=== PATIENT | female | born 1955 | race African-American/Black ===

== ENCOUNTER 2020-04-21 13:20 | Inpatient (IN) ==
[2020-04-21 14:54] LABS: Basophils # 0.1 10*3/uL (0.0-0.2); Basophils % 0.3 % (0.0-0.8); Eosinophils # 0.1 10*3/uL (0.0-0.87); Eosinophils % 0.6 % (0.00-10.9); Hematocrit 24.2 VOL% (35.7-47.0); Hemoglobin 7.5 GM/DL (12.0-16.0); Immature Granulocytes % 0.7 %; Immature Granulocytes Absolute 0.13 #; Lymphocytes # 0.9 10*3/uL (1.4-4.0); Lymphocytes % 4.6 % (21.3-54.2); Mean Corpuscular Volume 75.2 FL (87-102); Mean Platelet Volume 9.2 FL (9.6-12.0); Monocytes % 7.6 % (1.7-12.7); Neutrophils % 86.2 % (38.7-73.9); Platelet Count 874 T/CUMM (130-400); Red Blood Count 3.22 MC/CUMM (3.8-5.5); Red Cell Distribution Width 15.8 % (9.3-17.3)
[2020-04-21 15:24] LABS: Albumin 1.9 G/DL (3.4-5.0); Bilirubin,Total 0.6 MG/DL (0.2-1.0); Calcium 8.4 MG/DL (8.5-10.1); Osmolality,Calculated 250.8 MOS/KG (273-304); Total Protein 7.1 G/DL (6.4-8.3)
[2020-04-21] MEDS ORDERED: DEXTROSE 50% 25 GM/50 ML VIAL IV PRN (15:53)
[2020-04-21] MEDS ORDERED: GLUCAGON 1 MG VIAL IM PRN (15:53)
[2020-04-21] MEDS ORDERED: ONDANSETRON 4 MG/2 ML VIAL IV PRN (15:53)
[2020-04-21] MEDS ORDERED: DOCUSATE SODIUM 100 MG CAPSULE PO PRN (15:58)
[2020-04-21] MEDS ORDERED: guaiFENesin/DM ER 600-30 MG TABLET PO PRN (15:58)
[2020-04-21 15:59] LABS: Eosinophils 1 % (0-10); Hypochromasia 2+; Lymphocytes 6 % (20-55); Microcytosis 1+; Segmented Neutrophils 89 % (50-85); Total Cells Counted 100
[2020-04-21 16:00] LABS: Hypersegmented Neutrophil 1+; Platelet Estimate Increased
[2020-04-21] MEDS ORDERED: ALBUTEROL/IPRATROPIUM 3 ML NEB RESP TX SCH (16:00)
[2020-04-21] MEDS ORDERED: FLUTICASONE 50 MCG NASAL SPRAY 16 GM BOTTLE BOTH NARES PRN (16:06)
[2020-04-21] MEDS: ENOXAPARIN 40 MG/0.4 ML SYRINGE SUBCUT SCH (17:00)
[2020-04-21] MEDS: PIPERACILLIN/TAZOBACTAM 3,375 MG in SODIUM CHLORIDE 0.9% 100 ML IV SCH (17:01)
[2020-04-21] MEDS ORDERED: INFLUENZA VIRUS VACCINE 0.5 ML SYRINGE IM ONE (18:08)
[2020-04-21] MEDS: ALBUTEROL/IPRATROPIUM 3 ML NEB RESP TX SCH (18:43)
[2020-04-22] MEDS: ALBUTEROL/IPRATROPIUM 3 ML NEB RESP TX SCH ×7 (01:31→23:05)
[2020-04-22] MEDS: PIPERACILLIN/TAZOBACTAM 3,375 MG in SODIUM CHLORIDE 0.9% 100 ML IV SCH ×3 (02:00→15:59)
[2020-04-22 06:27] LABS: % Iron Saturation 18.1 % (18-50)
[2020-04-22 06:37] LABS: Folate 9.5 NG/ML (5.4-24.0); Vitamin B12 > 2000 PG/ML (211-911)
[2020-04-22 06:42] LABS: Calcium 8.8 MG/DL (8.5-10.1); Osmolality,Calculated 248.8 MOS/KG (273-304)
[2020-04-22 06:59] LABS: Basophils # 0.1 10*3/uL (0.0-0.2); Basophils % 0.4 % (0.0-0.8); Eosinophils # 0.2 10*3/uL (0.0-0.87); Eosinophils % 1.3 % (0.00-10.9); Hematocrit 22.2 VOL% (35.7-47.0); Immature Granulocytes % 0.8 %; Immature Granulocytes Absolute 0.13 #; Lymphocytes # 0.7 10*3/uL (1.4-4.0); Lymphocytes % 3.8 % (21.3-54.2); Mean Corpuscular HGB Conc 31.5 GM/DL (32-36); Mean Corpuscular Volume 73.8 FL (87-102); Mean Platelet Volume 9.4 FL (9.6-12.0); Monocytes % 7.3 % (1.7-12.7); Neutrophils % 86.4 % (38.7-73.9); Platelet Count 802 T/CUMM (130-400); Red Blood Count 3.01 MC/CUMM (3.8-5.5); White Blood Count 17.2 T/CUMM (4-12)
[2020-04-22 07:13] LABS: Eosinophils 2 % (0-10); Hypochromasia 2+; Lymphocytes 9 % (20-55); Microcytosis 1+; Ovalocytes Slight; Platelet Estimate Increased; Segmented Neutrophils 85 % (50-85); Total Cells Counted 100
[2020-04-22] MEDS ORDERED: SODIUM CHLORIDE 0.9% 1,000 ML IV PRN (08:00)
[2020-04-22] MEDS ORDERED: IBUPROFEN 600 MG TABLET PO PRN (08:01)
[2020-04-22] MEDS ORDERED: ALUMINUM/MAGNES/SIMETH MAX STR 30 ML UDCUP PO PRN (08:04)
[2020-04-22] MEDS ORDERED: MYLANTA/LIDO VISC 2:1 300 ML BOTTLE SWISH/SWAL PRN (08:04)
[2020-04-22] MEDS ORDERED: ALPRAZolam 0.25 MG TABLET PO PRN (08:04)
[2020-04-22] MEDS ORDERED: PROMETHAZINE INJ 25 MG in SODIUM CHLORIDE 0.9% 50 ML IV PRN (08:04)
[2020-04-22] MEDS ORDERED: MAGNESIUM HYDROXIDE SUSP 30 ML UDCUP PO PRN (08:04)
[2020-04-22] MEDS ORDERED: guaiFENesin 200 MG/10 ML UDCUP PO PRN (08:04)
[2020-04-22] MEDS ORDERED: ONDANSETRON 4 MG/2 ML VIAL IV PRN (08:04)
[2020-04-22] MEDS ORDERED: LOPERAMIDE 2 MG CAPSULE PO PRN ×2 (08:04)
[2020-04-22] MEDS ORDERED: LACTULOSE 20 GM/30 ML UDCUP PO PRN (08:04)
[2020-04-22] MEDS ORDERED: traMADol 50 MG TABLET PO PRN (08:04)
[2020-04-22] MEDS ORDERED: diphenhydrAMINE CAP 25 MG CAPSULE PO PRN (08:04)
[2020-04-22] MEDS ORDERED: ACETAMINOPHEN 325 MG TABLET PO PRN (08:04)
[2020-04-22] MEDS ORDERED: MYLANTA/LIDO VISC 2:1 300 ML BOTTLE SWISH/SPIT PRN (08:04)
[2020-04-22] MEDS ORDERED: TEMAZEPAM 7.5 MG CAPSULE PO PRN (08:04)
[2020-04-22 08:21] LABS: Sedimentation Rate-Westergren 122 MM/HR (0-30)
[2020-04-22] MEDS: PANTOPRAZOLE 40 MG TABLET PO SCH (08:36)
[2020-04-22] MEDS: NON-FORMULARY MEDICATION (Fluticasone Furoate-Vilanterol [Breo Ellipta] 200-25 mcg/dose Bl INH SCH (08:48)
[2020-04-22] MEDS: LEVOFLOXACIN INJ 500 MG in PREMIX 1 EACH IV SCH (09:51)
[2020-04-22] MEDS: SODIUM CHLORIDE 0.9% 1,000 ML IV SCH (09:52)
[2020-04-22 11:34] LABS: Hemoglobin A1 (Alkaline) 98.2 % (96.5-98.5); Hemoglobin A2 (Alkaline) 1.8 % (1.5-3.5)
[2020-04-22] MEDS: ENOXAPARIN 40 MG/0.4 ML SYRINGE SUBCUT SCH (15:58)
[2020-04-23] MEDS: PIPERACILLIN/TAZOBACTAM 3,375 MG in SODIUM CHLORIDE 0.9% 100 ML IV SCH ×4 (00:03→16:44)
[2020-04-23] MEDS: ALBUTEROL/IPRATROPIUM 3 ML NEB RESP TX SCH ×6 (02:58→23:20)
[2020-04-23 06:39] LABS: Basophils # 0.1 10*3/uL (0.0-0.2); Basophils % 0.3 % (0.0-0.8); Eosinophils # 0.1 10*3/uL (0.0-0.87); Eosinophils % 0.4 % (0.00-10.9); Hematocrit 27.7 VOL% (35.7-47.0); Immature Granulocytes % 0.8 %; Immature Granulocytes Absolute 0.18 #; Lymphocytes # 0.6 10*3/uL (1.4-4.0); Lymphocytes % 2.7 % (21.3-54.2); Mean Corpuscular HGB Conc 32.9 GM/DL (32-36); Mean Corpuscular Volume 78.7 FL (87-102); Mean Platelet Volume 8.9 FL (9.6-12.0); Monocytes % 7.2 % (1.7-12.7); Neutrophils % 88.6 % (38.7-73.9); Platelet Count 727 T/CUMM (130-400); Red Blood Count 3.52 MC/CUMM (3.8-5.5)
[2020-04-23 06:50] LABS: White Blood Count 23.4 T/CUMM (4-12)
[2020-04-23 06:51] LABS: Hemoglobin 9.1 GM/DL (12.0-16.0)
[2020-04-23 06:56] LABS: Calcium 8.5 MG/DL (8.5-10.1); Osmolality,Calculated 256.1 MOS/KG (273-304)
[2020-04-23 07:02] LABS: Eosinophils 1 % (0-10); Lymphocytes 4 % (20-55); Segmented Neutrophils 93 % (50-85); Total Cells Counted 100
[2020-04-23 07:03] LABS: Hypochromasia Slight; Microcytosis 1+; Platelet Estimate Increased
[2020-04-23] MEDS: NON-FORMULARY MEDICATION (Fluticasone Furoate-Vilanterol [Breo Ellipta] 200-25 mcg/dose Bl INH SCH (11:48)
[2020-04-23] MEDS: PANTOPRAZOLE 40 MG TABLET PO SCH (11:48)
[2020-04-23] MEDS: LEVOFLOXACIN INJ 500 MG in PREMIX 1 EACH IV SCH ×2 (14:56→14:57)
[2020-04-23] MEDS: SODIUM CHLORIDE 0.9% 1,000 ML IV SCH ×2 (15:00→15:56)
[2020-04-23] MEDS: ENOXAPARIN 40 MG/0.4 ML SYRINGE SUBCUT SCH (15:02)
[2020-04-23] MEDS: KETOROLAC 30 MG/1 ML VIAL IV PRN (21:50)
[2020-04-24] MEDS: PIPERACILLIN/TAZOBACTAM 3,375 MG in SODIUM CHLORIDE 0.9% 100 ML IV SCH ×2 (01:06→07:27)
[2020-04-24] MEDS: ALBUTEROL/IPRATROPIUM 3 ML NEB RESP TX SCH ×4 (03:03→14:47)
[2020-04-24 07:26] LABS: Basophils # 0.1 10*3/uL (0.0-0.2); Basophils % 0.3 % (0.0-0.8); Eosinophils # 0.2 10*3/uL (0.0-0.87); Hematocrit 27.6 VOL% (35.7-47.0); Hemoglobin 8.7 GM/DL (12.0-16.0); Immature Granulocytes % 0.8 %; Immature Granulocytes Absolute 0.15 #; Lymphocytes # 0.6 10*3/uL (1.4-4.0); Lymphocytes % 3.3 % (21.3-54.2); Mean Corpuscular HGB Conc 31.5 GM/DL (32-36); Mean Corpuscular Volume 78.9 FL (87-102); Mean Platelet Volume 8.3 FL (9.6-12.0); Monocytes % 7.1 % (1.7-12.7); Neutrophils % 87.5 % (38.7-73.9); Platelet Count 692 T/CUMM (130-400); Red Cell Distribution Width 18.2 % (9.3-17.3); White Blood Count 19.4 T/CUMM (4-12)
[2020-04-24 07:46] LABS: Band Neutrophils 2 % (0-10); Lymphocytes 3 % (20-55); Platelet Estimate Increased; Segmented Neutrophils 89 % (50-85); Total Cells Counted 100
[2020-04-24 07:47] LABS: Anisocytosis 1+; Ovalocytes Few; Poikilocytosis Slight
[2020-04-24 07:48] LABS: Calcium 8.9 MG/DL (8.5-10.1); Osmolality,Calculated 261.5 MOS/KG (273-304)
[2020-04-24] MEDS: PANTOPRAZOLE 40 MG TABLET PO SCH (08:28)
[2020-04-24] MEDS: NON-FORMULARY MEDICATION (Fluticasone Furoate-Vilanterol [Breo Ellipta] 200-25 mcg/dose Bl INH SCH (08:28)
[2020-04-24] MEDS: KETOROLAC 30 MG/1 ML VIAL IV PRN (08:30)
[2020-04-24] MEDS: LEVOFLOXACIN INJ 500 MG in PREMIX 1 EACH IV SCH (08:35)
[2020-04-24 14:04] LABS: Soluble Transf Receptor (sTfR) 6.2 mg/L (1.8 - 4.6)
[2020-04-24 15:41] VITALS: BP 132/70
[2020-04-25] MEDS ORDERED: LEVOFLOXACIN 500 MG TABLET PO SCH (09:00)
== END 2020-04-24 17:25 | disposition home or self-care (01) | DRG 640 ==
LOC: N.ED 13:20 → N.EDINP 15:52 → N.4E 16:53
PROVIDERS: ADMIT Hospitalist; ATTEND Hospitalist

== ENCOUNTER 2020-05-06 12:11 | Inpatient (IN) ==
[2020-05-06] MEDS ORDERED: DEXTROSE 50% 25 GM/50 ML VIAL IV PRN (14:32)
[2020-05-06] MEDS ORDERED: GLUCAGON 1 MG VIAL IM PRN (14:32)
[2020-05-06] MEDS ORDERED: ONDANSETRON 4 MG/2 ML VIAL IV PRN (14:32)
[2020-05-06] MEDS ORDERED: SODIUM CHLORIDE 0.9% 1,000 ML IV SCH (15:00)
[2020-05-06 15:10] LABS: Basophils % 0.1 % (0.0-0.8); Eosinophils % 0.2 % (0.00-10.9); Hematocrit 34.7 VOL% (35.7-47.0); Hemoglobin 11.2 GM/DL (12.0-16.0); Immature Granulocytes % 0.8 %; Immature Granulocytes Absolute 0.19 #; Lymphocytes # 0.3 10*3/uL (1.4-4.0); Lymphocytes % 1.2 % (21.3-54.2); Mean Corpuscular HGB Conc 32.3 GM/DL (32-36); Mean Corpuscular Volume 79.2 FL (87-102); Mean Platelet Volume 8.5 FL (9.6-12.0); Monocytes % 4.6 % (1.7-12.7); Neutrophils % 93.1 % (38.7-73.9); Platelet Count 555 T/CUMM (130-400); Red Blood Count 4.38 MC/CUMM (3.8-5.5); Red Cell Distribution Width 19.4 % (9.3-17.3); White Blood Count 23.4 T/CUMM (4-12)
[2020-05-06 15:32] LABS: Bilirubin,Total 1.7 MG/DL (0.2-1.0); Calcium 9.5 MG/DL (8.5-10.1); Osmolality,Calculated 250.4 MOS/KG (273-304); Total Protein 7.7 G/DL (6.4-8.3)
[2020-05-06 17:50] LABS: Band Neutrophils 4 % (0-10); Lymphocytes 2 % (20-55); Segmented Neutrophils 89 % (50-85); Total Cells Counted 100
[2020-05-06 17:51] LABS: Microcytosis Slight; Platelet Estimate Increased
[2020-05-06] MEDS: SODIUM CHLORIDE 0.9% 1,000 ML IV SCH (20:00)
[2020-05-06] MEDS ORDERED: DICLOFENAC 1% GEL 100 GM TUBE TOP PRN (21:11)
[2020-05-07 04:11] LABS: Calcium 8.8 MG/DL (8.5-10.1)
[2020-05-07] MEDS: SODIUM CHLORIDE 0.9% 1,000 ML IV SCH ×2 (04:15→17:09)
[2020-05-07 04:16] LABS: Osmolality,Calculated 251.2 MOS/KG (273-304)
[2020-05-07] MEDS ORDERED: ceFAZolin 1,000 MG in SYRINGE 1 EACH IV ONE (06:00)
[2020-05-07] MEDS ORDERED: propofoL 200 MG/20 ML VIAL IV ONE (09:00)
[2020-05-07] MEDS ORDERED: ETOMIDATE 20 MG/10 ML VIAL IV ONE (09:00)
[2020-05-07] MEDS ORDERED: LIDOCAINE 2% 5 ML VIAL ONE (09:00)
[2020-05-08] MEDS: SODIUM CHLORIDE 0.9% 1,000 ML IV SCH ×2 (01:25→13:40)
[2020-05-08] MEDS ORDERED: TUBERCULIN SKIN TEST 0.1 ML SYRINGE INTRADERM ONE (12:12)
[2020-05-08] MEDS: INSULIN LISPRO 100 UNIT/ML SUBCUT SCH (17:53)
[2020-05-09] MEDS: INSULIN LISPRO 100 UNIT/ML SUBCUT SCH ×4 (01:30→18:04)
[2020-05-09 05:34] LABS: Basophils % 0.1 % (0.0-0.8); Eosinophils % 0.1 % (0.00-10.9); Hematocrit 35.2 VOL% (35.7-47.0); Hemoglobin 10.7 GM/DL (12.0-16.0); Immature Granulocytes % 2.4 %; Immature Granulocytes Absolute 0.54 #; Lymphocytes # 0.3 10*3/uL (1.4-4.0); Lymphocytes % 1.4 % (21.3-54.2); Mean Corpuscular HGB Conc 30.4 GM/DL (32-36); Mean Corpuscular Volume 83.2 FL (87-102); Mean Platelet Volume 9.1 FL (9.6-12.0); Monocytes % 6.8 % (1.7-12.7); Neutrophils % 89.2 % (38.7-73.9); Platelet Count 434 T/CUMM (130-400); Red Blood Count 4.23 MC/CUMM (3.8-5.5); Red Cell Distribution Width 19.4 % (9.3-17.3); White Blood Count 22.1 T/CUMM (4-12)
[2020-05-09 05:55] LABS: Calcium 9.3 MG/DL (8.5-10.1); Osmolality,Calculated 265.5 MOS/KG (273-304)
[2020-05-09 06:27] LABS: Hypochromasia 2+; Lymphocytes 1 % (20-55); Microcytosis 1+; Segmented Neutrophils 96 % (50-85); Total Cells Counted 100
[2020-05-09 06:28] LABS: Platelet Estimate Increased
[2020-05-09] MEDS ORDERED: ALBUTEROL/IPRATROPIUM 3 ML NEB RESP TX PRN (23:08)
[2020-05-10] MEDS: INSULIN LISPRO 100 UNIT/ML SUBCUT SCH ×4 (01:01→18:30)
[2020-05-10] MEDS ORDERED: SODIUM CHLORIDE 0.65% NASAL SPRAY 45 ML BOTTLE BOTH NARES PRN (14:28)
[2020-05-11] MEDS: INSULIN LISPRO 100 UNIT/ML SUBCUT SCH ×3 (00:09→13:06)
[2020-05-11] MEDS ORDERED: ALUMINUM/MAGNES/SIMETH MAX STR 30 ML UDCUP PO PRN (00:17)
[2020-05-11 04:00] LABS: Basophils % 0.2 % (0.0-0.8); Eosinophils % 0.1 % (0.00-10.9); Hematocrit 32.4 VOL% (35.7-47.0); Hemoglobin 10.1 GM/DL (12.0-16.0); Immature Granulocytes % 1.2 %; Immature Granulocytes Absolute 0.26 #; Lymphocytes # 0.3 10*3/uL (1.4-4.0); Lymphocytes % 1.6 % (21.3-54.2); Mean Corpuscular HGB Conc 31.2 GM/DL (32-36); Mean Corpuscular Volume 79.8 FL (87-102); Mean Platelet Volume 9.1 FL (9.6-12.0); Monocytes % 4.8 % (1.7-12.7); Neutrophils % 92.1 % (38.7-73.9); Platelet Count 332 T/CUMM (130-400); Red Blood Count 4.06 MC/CUMM (3.8-5.5); Red Cell Distribution Width 19.9 % (9.3-17.3)
[2020-05-11 04:28] LABS: Calcium 9.7 MG/DL (8.5-10.1); Osmolality,Calculated 274.4 MOS/KG (273-304)
[2020-05-11 04:34] LABS: Band Neutrophils 1 % (0-10); Hypochromasia 1+; Lymphocytes 1 % (20-55); Microcytosis 1+; Platelet Estimate Adequate; Segmented Neutrophils 95 % (50-85); Total Cells Counted 100
[2020-05-11] MEDS ORDERED: MAGNESIUM HYDROXIDE SUSP 30 ML UDCUP PO PRN (15:55)
[2020-05-11 16:56] VITALS: BP 128/95
== END 2020-05-11 17:32 | disposition home health service (06) | DRG 922 ==
LOC: N.4E → SUATTDRO 12:25
PROVIDERS: ADMIT Internal Medicine; ATTEND Family Medicine
PROC: EGDWPEG (ICD-10-PCS; 2020-05-07 08:35)